=== PATIENT | male | born 1945 | race Caucasian/White ===

== ENCOUNTER 2016-09-10 19:24 | Inpatient (IN) | payer OTHER ==
[~2016-09-10] VITALS: Ht 170.2 cm; Wt 78.7 kg
[~2016-09-10 19:24] MED LIST: ATIVAN0.5 MG PO; CLARITIN10 MG PO; FOLIC ACID0.4 MG PO; FOLIC ACID0.8 M1 PO; NORCO 5/3251 TABLET PO; ONDANSETRON HCL8 MG PO; PREDISONE PO; TYLENOL REGULA325 MG PO; predisone PO
[2016-09-10 20:43] LABS: CHLORIDE 104 mEq/L (99-109); POTASSIUM 4.2 mEq/L (3.7-5.4); SODIUM 134 mEq/L (136-147)
[2016-09-10 20:45] LABS: GLUCOSE 104 mg/dL (70-99)
[2016-09-10 20:47] LABS: ANION GAP 10 MEQ/L (2-14)
[2016-09-10 20:49] LABS: GFR ESTIMATE (CALCULATED) 38 mL/min/; HEMATOCRIT 28.9 % (38.0-50.0); MCHC 34.3 G/DL (30.0-36.0); MCV 93.5 FL (86-99); MEAN PLAT.VOLUME 9.7 uM^3 (9.0-12.4); PLATELET COUNT 73 K/uL (156-360); RBC DIS.WIDTH-CV 13.6 % (11.8-14.6); RBC DIS.WIDTH-SD 46.4 % (39-53); RED BLOOD COUNT 3.09 M/uL (4.00-5.50)
[2016-09-10 20:50] LABS: UREA NITROGEN (BUN) 33 mg/dL (9-23)
[2016-09-10 21:03] LABS: WHITE BLOOD COUNT 1.2 K/uL (4.1-10.2)
[2016-09-10 21:10] LABS: ADD MIUA? YES; BILIRUBIN NEGATIVE; BLOOD SMALL; COLOR YELLOW ((YELLOW)); GLUCOSE (STRIP) NEGATIVE; KETONES NEGATIVE; LEUKOCYTES NEGATIVE; NITRITE NEGATIVE; PROTEIN (STRIP) NEGATIVE; SPECIFIC GRAVITY 1.014 (1.000-1.030); UROBILINOGEN 0.2 MG/DL (0.2-1.0)
[2016-09-10 21:17] LABS: BACTERIA NONE SEEN /HPF; EPITHELIAL CELLS RARE /HPF; MUCUS TRACE /LPF; RED BLOOD CELLS 0-5 /HPF (0-5); UCUL ADDED? NO; WHITE BLOOD CELLS 0-5 /HPF (0-5)
[2016-09-10 22:12] LABS: TROP-I INTERPRETATION NEGATIVE; TROPONIN-I 0.01 ng/mL (0.0-0.30)
[2016-09-10 22:17] LABS: ABS NEUTROPHIL COUNT 0.3; ANISOCYTOSIS 1+; ATYPICAL LYMPHOCYTE 2.7 %; BAND NEUTROPHILS 13.4 % (0-8.0); EOSINOPHIL ABS CT 0; HEMATOLOGY COMMENT 1 HYPOSEGMENTED NEUTROPHILS PRESENT; INSTRUMENT ABS NEUTROPHIL CT 0.8 K/uL; LYMPHOCYTES 9.8 % (15.0-45.0); METAMYELOCYTES 59.8 %; MICROCYTOSIS 1+; SEG.NEUTROPHILS 10.7 % (46.0-76.0)
[2016-09-10] MEDS ORDERED: CLARITIN,ALAVAR10 MG PO (23:13)
[2016-09-10] MEDS ORDERED: RITUXAN10 MG/ML PO (23:14)
[2016-09-11] VITALS (33 sets, daily range): BP systolic 79–162; BP diastolic 37–85
[2016-09-11 07:01] LABS: HEMATOCRIT 27.5 % (38.0-50.0); MCH 32.6 PG (29.0-34.0); MCHC 33.8 G/DL (30.0-36.0); MCV 96.5 FL (86-99); MEAN PLAT.VOLUME 9.7 uM^3 (9.0-12.4); PLATELET COUNT 57 K/uL (156-360); RBC DIS.WIDTH-SD 50.2 % (39-53); RED BLOOD COUNT 2.85 M/uL (4.00-5.50)
[2016-09-11 07:07] LABS: WHITE BLOOD COUNT 1.2 K/uL (4.1-10.2)
[2016-09-11 07:11] LABS: ALKALINE PHOSPHATASE 85 IU/L (3-129); ANION GAP 13 MEQ/L (2-14); CHLORIDE 109 MEQ/L (99-109); GFR ESTIMATE (CALCULATED) 43 mL/min/; GLUCOSE 89 mg/dL (70-99); POTASSIUM 3.6 MEQ/L (3.7-5.4); SAMPLE HEMOLYSIS CHECK 0; SAMPLE ICTERIC CHECK 0; SAMPLE LIPEMIA CHECK 0; SODIUM 138 MEQ/L (136-147); UREA NITROGEN (BUN) 32 mg/dL (9-23)
[2016-09-11 07:57] LABS: METH RESISTANT S AUREUS PCR NEGATIVE (NEGATIVE); PROBE CHECK PASS; SPECIMEN PROCESSING CONTROL PASS
[2016-09-11 08:12] LABS: ANISOCYTOSIS 2+; OVALOCYTES 1+; PLAT.SUFFICIENCY DECREASED; TOX.VACUOLIZATION 2+; TOXIC GRANULATION 1+
[2016-09-11 08:13] LABS: MAGNESIUM 1.6 mg/dl (1.3-2.7)
[2016-09-11 08:21] LABS: ABS NEUTROPHIL COUNT 0.8; ATYPICAL LYMPHOCYTE 5.4 %; BAND NEUTROPHILS 3.6 % (0-8.0); BASOPHILS 1.8 %; EOSINOPHIL ABS CT 0; INSTRUMENT ABS NEUTROPHIL CT 0.7 K/uL; LYMPHOCYTES 11.6 % (15.0-45.0); METAMYELOCYTES 7.1 %; SEG.NEUTROPHILS 64.3 % (46.0-76.0)
[2016-09-11 09:28] LABS: INFLUENZA A VIRAL ANTIGEN NEGATIVE; INFLUENZA B VIRAL ANTIGEN NEGATIVE
[2016-09-11 12:22] LABS: POINT-OF-CARE METER ID UU14174217
[2016-09-11 17:29] LABS: POINT-OF-CARE METER ID UU14174217
[2016-09-11 19:00] LABS: TROP-I INTERPRETATION NEGATIVE; TROPONIN-I 0.11 ng/mL (0.0-0.30)
[2016-09-11 19:01] LABS: CK-MB 16.4 ng/mL (0.0-4.9)
[2016-09-11 19:14] LABS: CREATINE KINASE 1069 IU/L (1-294); TOTAL CK 1069 IU/L (1-294)
[2016-09-12] VITALS (17 sets, daily range): BP systolic 78–128; BP diastolic 47–81
[2016-09-12 01:02] LABS: TOTAL CK 1502 IU/L (1-294)
[2016-09-12 01:03] LABS: CREATINE KINASE 1502 IU/L (1-294)
[2016-09-12 01:04] LABS: TROP-I INTERPRETATION NEGATIVE; TROPONIN-I 0.08 ng/mL (0.0-0.30)
[2016-09-12 01:05] LABS: CK-MB 15.9 ng/mL (0.0-4.9)
[2016-09-12 05:51] LABS: TROP-I INTERPRETATION NEGATIVE
[2016-09-12 06:35] LABS: ANION GAP 8 MEQ/L (2-14); CHLORIDE 110 MEQ/L (99-109); CREATINE KINASE 855 IU/L (1-294); GFR ESTIMATE (CALCULATED) 53 mL/min/; GLUCOSE 103 mg/dL (70-99); SAMPLE HEMOLYSIS CHECK 0; SAMPLE ICTERIC CHECK 0; SAMPLE LIPEMIA CHECK 0; SODIUM 137 MEQ/L (136-147); TOTAL CK 855 IU/L (1-294); UREA NITROGEN (BUN) 29 mg/dL (9-23)
[2016-09-12 06:41] LABS: HEMATOCRIT 23.9 % (38.0-50.0); MCH 32.3 PG (29.0-34.0); MCHC 34.7 G/DL (30.0-36.0); RBC DIS.WIDTH-CV 13.9 % (11.8-14.6); RBC DIS.WIDTH-SD 47.6 % (39-53); RED BLOOD COUNT 2.57 M/uL (4.00-5.50); WHITE BLOOD COUNT 0.5 K/uL (4.1-10.2)
[2016-09-12 06:43] LABS: MAGNESIUM 2.4 mg/dl (1.3-2.7)
[2016-09-12 07:34] LABS: CK-MB 13.2 ng/mL (0.0-4.9)
[2016-09-12 10:11] LABS: ABS NEUTROPHIL COUNT 0.1; ANISOCYTOSIS 2+; BURR CELLS 1+; EOSINOPHIL ABS CT 0; IMM.PLATELET FRACTION 4.5 (1-7); INSTRUMENT ABS NEUTROPHIL CT 0.3 K/uL; MEAN PLAT.VOLUME 10.7 uM^3 (9.0-12.4); PLAT.SUFFICIENCY DECREASED; PLATELET COUNT 38 K/uL (156-360); TOXIC GRANULATION 1+
[2016-09-12 11:37] LABS: POINT-OF-CARE METER ID UU13113803
[2016-09-12 13:00] LABS: CREATINE KINASE 714 IU/L (1-294); TOTAL CK 714 IU/L (1-294)
[2016-09-12 13:04] LABS: TROP-I INTERPRETATION NEGATIVE; TROPONIN-I 0.08 ng/mL (0.0-0.30)
[2016-09-12 15:26] LABS: CK-MB 11.4 ng/mL (0.0-4.9)
[2016-09-12 16:40] LABS: POINT-OF-CARE METER ID UU13113803
[2016-09-12 17:09] LABS: INTERNAL CONTROL VALID? YES
[2016-09-12 17:38] LABS: C DIFF TOXIN NEGATIVE (NEGATIVE)
[2016-09-12 17:41] LABS: PROBE CHECK PASS; SPECIMEN PROCESSING CONTROL PASS
[2016-09-12 23:30] LABS: POINT-OF-CARE METER ID UU13113803
[2016-09-13] VITALS (13 sets, daily range): BP systolic 101–136; BP diastolic 55–72
[2016-09-13 06:26] LABS: HEMATOCRIT 23.1 % (38.0-50.0); MCH 33.2 PG (29.0-34.0); MCHC 35.1 G/DL (30.0-36.0); MCV 94.7 FL (86-99); RBC DIS.WIDTH-CV 14.4 % (11.8-14.6); RBC DIS.WIDTH-SD 49.5 % (39-53); RED BLOOD COUNT 2.44 M/uL (4.00-5.50)
[2016-09-13 06:36] LABS: ABS NEUTROPHIL COUNT 0.2; ANISOCYTOSIS 1+; BAND NEUTROPHILS 8.5 % (0-8.0); BASOPHILS 4.9 %; BURR CELLS 1+; EOSINOPHIL ABS CT 0; EOSINOPHILS 3.7 % (0-5.0); IMM.PLATELET FRACTION 4.1 (1-7); INSTRUMENT ABS NEUTROPHIL CT 0.3 K/uL; LYMPHOCYTES 31.7 % (15.0-45.0); MEAN PLAT.VOLUME 11.3 uM^3 (9.0-12.4); METAMYELOCYTES 19.5 %; MYELOCYTES 7.3 %; NUCLEATED RBC'S 3.7; OVALOCYTES 1+; PLAT.SUFFICIENCY DECREASED; PLATELET COUNT 47 K/uL (156-360); POIKILOCYTOSIS 2+; SEG.NEUTROPHILS 19.5 % (46.0-76.0); SMUDGE CELLS 9.8; WHITE BLOOD COUNT 0.7 K/uL (4.1-10.2)
[2016-09-13 06:39] LABS: ANION GAP 8 MEQ/L (2-14); CHLORIDE 113 MEQ/L (99-109); GFR ESTIMATE (CALCULATED) 53 mL/min/; GLUCOSE 99 mg/dL (70-99); MAGNESIUM 2.3 mg/dl (1.3-2.7); POTASSIUM 3.8 MEQ/L (3.7-5.4); SAMPLE HEMOLYSIS CHECK 0; SAMPLE ICTERIC CHECK 0; SAMPLE LIPEMIA CHECK 0; SODIUM 140 MEQ/L (136-147); UREA NITROGEN (BUN) 26 mg/dL (9-23)
[2016-09-13 15:44] LABS: POINT-OF-CARE METER ID UU13113781
[2016-09-13 21:10] LABS: POINT-OF-CARE METER ID UU13113698
[2016-09-14 04:38] VITALS: BP 110/60
[2016-09-14 06:50] LABS: ANION GAP 9 MEQ/L (2-14); CHLORIDE 111 MEQ/L (99-109); GFR ESTIMATE (CALCULATED) 49 mL/min/; GLUCOSE 105 mg/dL (70-99); MAGNESIUM 2.1 mg/dl (1.3-2.7); POTASSIUM 3.9 MEQ/L (3.7-5.4); SAMPLE HEMOLYSIS CHECK 0; SAMPLE ICTERIC CHECK 0; SAMPLE LIPEMIA CHECK 0; SODIUM 139 MEQ/L (136-147); UREA NITROGEN (BUN) 27 mg/dL (9-23)
[2016-09-14 07:04] VITALS: BP 111/65
[2016-09-14 07:27] LABS: EOSINOPHIL (%) 5.7 % (0-5); HEMATOCRIT 20.4 % (38.0-50.0); IMMATURE GRANULOCYTE (%) 2.9 % (0.0-0.7); INSTRUMENT ABS NEUTROPHIL CT 0.3 K/uL; LYMPHOCYTE COUNT 0.2 K/uL (1.0-2.8); MCH 32.9 PG (29.0-34.0); MCHC 34.8 G/DL (30.0-36.0); MCV 94.4 FL (86-99); MEAN PLAT.VOLUME 10.7 uM^3 (9.0-12.4); MONOCYTE (%) 24.3 % (3-12); MONOCYTE COUNT 0.2 K/uL (0-0.8); NEUTROPHIL (%) 45.7 % (45-76); NEUTROPHIL COUNT 0.3 K/uL (1.8-6.4); PLATELET COUNT 60 K/uL (156-360); RBC DIS.WIDTH-CV 14.6 % (11.8-14.6); RBC DIS.WIDTH-SD 50.6 % (39-53); RED BLOOD COUNT 2.16 M/uL (4.00-5.50)
[2016-09-14 07:29] LABS: WHITE BLOOD COUNT 0.7 K/uL (4.1-10.2)
[2016-09-14 08:23] LABS: POINT-OF-CARE METER ID UU14174216; POINT-OF-CARE USER ID ENVKC36
[2016-09-14 11:36] VITALS: BP 113/64
[2016-09-14 11:46] LABS: POINT-OF-CARE METER ID UU13113698; POINT-OF-CARE USER ID ENVKC36
[2016-09-14 15:10] VITALS: BP 141/68
[2016-09-14 17:11] LABS: POINT-OF-CARE METER ID UU13113698; POINT-OF-CARE USER ID ENVKC36
[2016-09-14 19:34] VITALS: BP 116/60
[2016-09-14 23:53] VITALS: BP 132/73
[2016-09-15] VITALS (12 sets, daily range): BP systolic 124–152; BP diastolic 67–86
[2016-09-15 06:19] LABS: HEMATOCRIT 20.1 % (38.0-50.0); MCH 32.1 PG (29.0-34.0); MCHC 33.8 G/DL (30.0-36.0); MCV 94.8 FL (86-99); MEAN PLAT.VOLUME 10.4 uM^3 (9.0-12.4); PLATELET COUNT 68 K/uL (156-360); RBC DIS.WIDTH-CV 14.6 % (11.8-14.6); RBC DIS.WIDTH-SD 50.6 % (39-53); RED BLOOD COUNT 2.12 M/uL (4.00-5.50)
[2016-09-15 06:28] LABS: WHITE BLOOD COUNT 0.8 K/uL (4.1-10.2)
[2016-09-15 06:32] LABS: ANION GAP 8 MEQ/L (2-14); CHLORIDE 111 MEQ/L (99-109); GFR ESTIMATE (CALCULATED) 58 mL/min/; GLUCOSE 122 mg/dL (70-99); POTASSIUM 3.9 MEQ/L (3.7-5.4); SAMPLE HEMOLYSIS CHECK 0; SAMPLE ICTERIC CHECK 0; SAMPLE LIPEMIA CHECK 0; SODIUM 140 MEQ/L (136-147); UREA NITROGEN (BUN) 30 mg/dL (9-23)
[2016-09-15 08:03] LABS: DIRECT BILIRUBIN 0.2 mg/dL (0.0-0.3)
[2016-09-15 08:07] LABS: TOTAL BILIRUBIN 0.7 MG/DL (0.0-1.0)
[2016-09-15 08:45] LABS: ABS NEUTROPHIL COUNT 0.2; EOSINOPHIL ABS CT 0.1; INSTRUMENT ABS NEUTROPHIL CT 0.2 K/uL
[2016-09-15 20:56] LABS: POINT-OF-CARE METER ID UU13113698
[2016-09-16 03:50] VITALS: BP 145/67
[2016-09-16 06:04] LABS: ANION GAP 11 MEQ/L (2-14); CHLORIDE 106 MEQ/L (99-109); GFR ESTIMATE (CALCULATED) > 59 mL/min/; MAGNESIUM 1.8 mg/dl (1.3-2.7); POTASSIUM 3.9 MEQ/L (3.7-5.4); SAMPLE HEMOLYSIS CHECK 0; SAMPLE ICTERIC CHECK 0; SAMPLE LIPEMIA CHECK 0; SODIUM 139 MEQ/L (136-147); UREA NITROGEN (BUN) 32 mg/dL (9-23)
[2016-09-16 06:33] LABS: GLUCOSE 88 mg/dL (70-99)
[2016-09-16 06:34] LABS: HEMATOCRIT 25.4 % (38.0-50.0); MCH 30.9 PG (29.0-34.0); MCHC 34.3 G/DL (30.0-36.0); RBC DIS.WIDTH-CV 16.7 % (11.8-14.6); RBC DIS.WIDTH-SD 55.3 % (39-53)
[2016-09-16 06:41] LABS: MCV 90.1 FL (86-99); PLATELET COUNT 108 K/uL (156-360); RED BLOOD COUNT 2.82 M/uL (4.00-5.50); WHITE BLOOD COUNT 1.3 K/uL (4.1-10.2)
[2016-09-16 07:24] LABS: ABS NEUTROPHIL COUNT 0.4; ANISOCYTOSIS 2+; BASOPHILS 1.5 %; EOSINOPHIL ABS CT 0.2; EOSINOPHILS 17.9 % (0-5.0); INSTRUMENT ABS NEUTROPHIL CT 0.5 K/uL; LYMPHOCYTES 20.9 % (15.0-45.0); PLAT.SUFFICIENCY DECREASED; POLYCHROMASIA 1+; SEG.NEUTROPHILS 32.8 % (46.0-76.0); SPHEROCYTES 1+
[2016-09-16 08:30] VITALS: BP 128/75
[2016-09-16 08:33] LABS: POINT-OF-CARE METER ID UU13113781; POINT-OF-CARE USER ID NUTSLF44
[2016-09-16] MEDS ORDERED: CEFTIN500 MG PO (09:36)
== END 2016-09-16 11:26 | disposition home or self-care (01) | DRG 871 ==
LOC: EME → EDBD 19:24 → EME 19:24 → 4EAST 09-11 00:43 → EDOF 09-11 00:43 → 3EAST 09-11 00:43 → 4WEST 09-11 00:43 → 3EAST 09-11 02:58 → 4WEST 09-11 05:55 → 4EAST 09-13 11:02 → 4WEST 09-13 11:05 → 4EAST 09-13 15:30
PROVIDERS: Emergency Medicine; Internal Medicine; Internal Medicine Critical Care Medicine; Internal Medicine Nephrology
DX: A41.01 Sepsis due to Methicillin susceptible Staphylococcus aureus (principal); R65.21 Severe sepsis with septic shock; J18.9 Pneumonia, unspecified organism; D61.818 Other pancytopenia; E87.2 Acidosis; N17.9 Acute kidney failure, unspecified; E78.5 Hyperlipidemia, unspecified; E83.42 Hypomagnesemia; N18.3 Chronic kidney disease, stage 3 (moderate); E87.6 Hypokalemia; F17.210 Nicotine dependence, cigarettes, uncomplicated; R09.02 Hypoxemia; Z85.72 Personal history of non-Hodgkin lymphomas; Z88.0 Allergy status to penicillin
CPT/HCPCS: 70450; 71010; 80048; 80053; 81003; 82247; 82248; 82550; 82550 91; 82553; 82948; 83605; 83630; 83735; 84100; 84484; 85007; 85009; 85025; 86900; 86901; 86920; 87040; 87070; 87077; 87086; 87186; 87205; 87449; 87493; 87502; 87641; 87801; 93005; 93306; 94640; 94640 76; 94760; 94799; 99202; 99281; 99285; J0456; J0692; J1644; J1815; J1940; J3370; J3475; J7030; J7050; J7120; P9040; P9045

== ENCOUNTER → 2017-02-17 | Outpatient (CLI) | payer OTHER ==
[~2017-02-17] MED LIST changes: +CEFTIN500 MG PO; +CLARITIN,ALAVAR10 MG PO; +NEXIUM20 MG PO; +RITUXAN10 MG/ML PO
== END | disposition home or self-care (01) ==
LOC: AMB 09:20
DX: Z45.2 Encounter for adjustment and management of vascular access device (principal); I87.8 Other specified disorders of veins; Z92.21 Personal history of antineoplastic chemotherapy